=== PATIENT | male | born 1975 | race Caucasian/White ===

== ENCOUNTER 2021-06-15 09:34 | Emergency (ER) | payer BC ==
[2021-06-15] MEDS ORDERED: HYDROmorphone 1 MG/ML Syringe IM ONE (10:01)
[2021-06-15] MEDS ORDERED: methylPREDNISolone Sodium Succinate 125 MG/2 ML SDV IM ONE (10:01)
--- NOTE | 2021-06-15 10:08 | EDM.PDOC ---
ED HPI GENERAL MEDICAL PROBLEM - General Chief Complaint: Back Pain or Injury Stated Complaint: Back pain Time Seen by Provider: 06/15/21 09:58 Source of Information: Reports: Patient, Family History Limitations: Reports: No Limitations - History of Present Illness INITIAL COMMENTS - FREE TEXT/NARRATIVE: Patient presents to the Ed for low back pain. He states he chronically has low back pain that is managed with hydrocodone 10/325 twice a day. yesterday he was hanging a shelf with his sons and his back started to get tight. the shelf was only 15 pounds and it was not a struggle. He took his regular medication of hydrocodone and tylenol but did not help. he takes lorazepam to help sleep and took this last night. He is most comfortable laying down. No loss of bowel or bladder, no perineal numbess and can use his legs, just has pain in the mid low back. no surgery or mri on the back. This morning his told him to take 2 mg of the lorazepam to help along for a norflex and advil. pain is continuing, but unchanged. She managed to get him in the car to bring him. here. 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 Onset Date: 06/14/21 - Related Data Allergies Allergy/AdvReac Type Severity Reaction Status Date / Time No Known Allergies Allergy Verified 06/15/21 10:00 Home Meds: Home Meds Hydrocodone/Acetaminophen [HYDROcodone-Acetaminophen 10-325 MG] 1 each PO Q4HR PRN #14 tab 06/15/21 [Rx] diazePAM [Valium] 10 mg PO Q8H PRN #14 tablet 06/15/21 [Rx] Past Medical History Musculoskeletal History: Reports: Back Pain, Chronic (on hydrocodone for this with pain contract) Social & Family History - Tobacco Use Tobacco Use Status *Q: Former Tobacco User (been on chantix for the last week, trying to quit) - Living Situation & Occupation Living situation: Reports: , with Spouse ED ROS GENERAL - Review of Systems Review Of Systems: See Below Constitutional: Reports: No Symptoms. Denies: Fever, Chills HEENT: Reports: No Symptoms Respiratory: Reports: No Symptoms. Denies: Shortness of Breath, Cough Cardiovascular: Reports: No Symptoms. Denies: Chest Pain, Dyspnea on Exertion Endocrine: Reports: No Symptoms GI/Abdominal: Reports: No Symptoms. Denies: Abdominal Pain, Diarrhea, Flatus : Reports: No Symptoms. Denies: Dysuria, Frequency Musculoskeletal: Reports: Back Pain (mid lower back, no radiation, no weakness no loss of bowel or bladder, no numbness) Skin: Reports: No Symptoms Psychiatric: Reports: No Symptoms Hematologic/Lymphatic: Reports: No Symptoms ED EXAM,LOWER BACK PAIN/INJURY - Physical Exam Exam: See Below Exam Limited By: No Limitations General Appearance: Alert, WD/WN, Moderate Distress Eye Exam: Bilateral Eye: EOMI, Normal Inspection, PERRL Nose: Normal Inspection Throat/Mouth: Normal Lips, Normal Voice, No Airway Compromise Head: Atraumatic Neck: Normal Inspection, Supple, Non-Tender, Full Range of Motion Respiratory/Chest: No Respiratory Distress, Lungs Clear, Normal Breath Sounds, No Accessory Muscle Use Cardiovascular: Regular Rate, Rhythm, No Edema, No Murmur Rectal (Males) Exam: Deferred Back Exam: Normal Inspection, Decreased Range of Motion (with flexion, has full extension. No lesions or rashes, no tenderness to palpation of the vertebral processes, si joints or paraspinal muscles ). No: CVA Tenderness (L), CVA Tenderness (R), Muscle Spasm Extremities: Normal Inspection, Normal Range of Motion, No Pedal Edema, Normal Capillary Refill, Other (symmetric and normal sterngth bilaterally to hip flexion, knee flexion and extension, foot dorsi and plantar flexion. good peripheral pulses. normal sensation distally bilaterally.Patient does struggle due to pain with hip flexion) Neurological: Alert, Normal Mood/Affect, Normal Dorsiflexion, CN II-XII Intact, Normal Plantar Flexion, No Motor/Sensory Deficits, Oriented x 3 Course - Orders/Labs/Meds Orders: Active Orders 24 hr Category Date Time Status HYDROmorphone [Dilaudid] Med 06/15/21 10:01 Once 2 mg IM ONETIME ONE diazePAM [Valium] Med 06/15/21 10:01 Once 5 mg IM ONETIME ONE methylPREDNISolone Sod Succ [Solu-MEDROL] Med 06/15/21 10:01 Once 125 mg IM ONETIME ONE - Re-Assessments/Exams Free Text/Narrative Re-Assessment/Exam: 06/15/21 10:21 discussion with patient about the need for traction, by chiropractor, physical therapy, or inversion table. prefers inversion table. Will give injection of solu medrol, 125 mg, valium 5 mg and diluadid 2 mg ( chronically on narcotics) I M. Will give short prescription to bridge him with the hydrocodone as he will be having increased use every 4 hours ( instead of bid) to get him through the weekend. Advised he communicates this visit with his PCP and pain management. will also give valium to be used as muscle spasm treatment. Cautioned about respiratory depression with these mediations. 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 Departure - Departure Time of Disposition: 10:03 Disposition: Home, Self-Care 01 Condition: Good Clinical Impression: Back pain - Discharge Information *PRESCRIPTION DRUG MONITORING PROGRAM REVIEWED*: Yes *COPY OF PRESCRIPTION DRUG MONITORING REPORT IN PATIENT LUIS FELIPE: No Prescriptions: Hydrocodone/Acetaminophen [HYDROcodone-Acetaminophen 10-325 MG] 1 each PO Q4HR PRN #14 tab PRN Reason: Pain diazePAM [Valium] 10 mg PO Q8H PRN #14 tablet PRN Reason: Spasms Instructions: Acute Back Pain, Adult Additional Instructions: Seek chiropractic or physical therapy care for traction or use an inversion table. Take the hydrocodone 10/325 every 4 hours as needed for pain. you were given a small supply to augment your chronic pain contract. Inform your PCP of this new development. Take the Valium 10 mg every 8 hours as needed for muscle spasm. you were given an injection of valium, dilaudid and solu medrol ( a steroid) to help today. Return to the Ed for numbness in the scrotum area, loss of control of bladder or bowel, or inability to use a lower extremity. - My Orders Last 24 Hours: My Active Orders 06/15/21 10:01 HYDROmorphone [Dilaudid] 2 mg IM ONETIME ONE diazePAM [Valium] 5 mg IM ONETIME ONE methylPREDNISolone Sod Succ [Solu-MEDROL] 125 mg IM ONETIME ONE - Assessment/Plan Last 24 Hours: My Active Orders 06/15/21 10:01 HYDROmorphone [Dilaudid] 2 mg IM ONETIME ONE diazePAM [Valium] 5 mg IM ONETIME ONE methylPREDNISolone Sod Succ [Solu-MEDROL] 125 mg IM ONETIME ONE
== END 2021-06-15 10:40 | disposition home or self-care (01) ==
LOC: LL.ED 09:34 → SUPCPDRO 09:34 → LL.ED 10:40
DX: M54.50 Low back pain, unspecified (principal); Z87.891 Personal history of nicotine dependence
CPT/HCPCS: 96372; 99283; J1170; J2930; J3360